=== PATIENT | male | born 1965 | race Asian ===

== ENCOUNTER 2016-05-05 10:09 | Emergency (ER) | payer MEDICARE, OTHER ==
[~2016-05-05] VITALS: Wt 130.0 kg
[~2016-05-05 10:09] MED LIST: BEN50 PO; IBUP-1542 PO; NAPR-260 PO
[2016-05-05] MEDS ORDERED: IPRATROPIUM (NEB) 0.5 MG/2.5 ML AMP HHN ONE (11:30)
[2016-05-05] MEDS ORDERED: DEXAMETHASONE 10 MG/ML 1 ML INJ IM ONE (11:30)
[2016-05-05] MEDS ORDERED: ALBUTEROL 0.083% (NEB) 2.5 MG/3 ML AMP HHN ONE (11:30)
--- NOTE | 2016-05-05 12:13 | RADRPT ---
PROCEDURE: Chest Radiograph. CLINICAL INDICATION: Cough. Wheezing. TECHNIQUE: Single frontal chest radiograph. COMPARISON: None available FINDINGS: The patient is rotated. Heart size is poorly evaluated. The cardiomediastinal silhouette is grossl y within normal limits. There is a suggested mild interstitial prominence. No confluent or lobar in filtrate is seen. No pleural effusion is identified. There is no pneumothorax. The bones are in tact. IMPRESSION: 1. Suggested mild nonspecific interstitial prominence which may be related to technical factors, ch ronic lung changes, or interstitial infiltrates/edema. Artifact is favored given the appearance of t he adjacent soft tissue. 2. No definitive evidence of acute cardiopulmonary disease. .Pierce Fish MD, MD Date Time Electronically viewed and signed by .Pierce Fish MD, on 05/05/2016 12:13 .B/
--- NOTE | 2016-05-05 13:00 | RADRPT ---
PROCEDURE: XR Elbow. CLINICAL INDICATION: Generalized elbow pain TECHNIQUE: Three views of the left elbow are available for review COMPARISON: None available FINDINGS: There is no acute osseous or articular abnormality. No evidence for fracture. The radiocapitellar and ulnohumeral articular surfaces are preserved. Enthesopathic changes are noted at the triceps ins ertion. No evidence for joint effusion or soft tissue calcifications. IMPRESSION: 1. No acute osseous abnormality. RPTAT: RR .Zeeshan Mercado MD, Date Time Electronically viewed and signed by .Zeeshan Mercado MD, MD on 05/05/2016 13:00 .d/
[2016-05-05] MEDS ORDERED: AZIT250T94 PO (13:04)
[2016-05-05] MEDS ORDERED: HYDR25SU23 PR (13:04)
[2016-05-05] MEDS ORDERED: ALBU8.5H3 INH (13:05)
[2016-05-05] MEDS ORDERED: IBUP400T22 PO (13:05)
--- NOTE | 2016-05-05 13:19 | ERD ---
ER Documentation Chief Complaint Date/Time DATE: 05/05/16 TIME: 13:14 Chief Complaint wheezing for the past month with no releif. no pain. no retractions HPI Patient is a 51-year-old male who presents the ED with multiple complaints. He states that he has had wheezing and cough for the last month, he has been using his albuterol which has helped with his symptoms. He denies chest pain, shortness of breath or difficulty breathing. He denies fever or chills. He also complains of runny nose. Denies headache, dizziness, neck pain, stiffness. Denies leg pain or swelling. Denies recent travel or recent surgeries. He also states that he wants a refill of Anusol cream. He states that he has a history of hemorrhoids and has run out of his medication. He denies any bloody stools, pain with stooling, abdominal pain, nausea, vomiting, diarrhea or constipation. Last bowel movement was today. He also complains of left elbow pain that started 1 month ago. He states that he sleeps with his elbow bent, and states that when he wakes up he has pain in his elbow. He denies radiation of pain. Denies numbness or tingling. Denies pain in the shoulder, wrist or hand. States that he is able to move his shoulder without difficulty. He also states that he would like a refill on ibuprofen. No other complaints today. ROS All systems reviewed and are negative except as per history of present illness. Medications Home Meds Active Scripts Albuterol Sulfate* (Proair HFA*) 8.5 Gm Hfa.aer.ad, 2 PUFF INH Q4, #1 INHALER Prov:RABIA PANDEY PA-C 05/05/16 Ibuprofen* (Motrin*) 400 Mg Tab, 400 MG PO Q6, #30 TAB Prov:CHRISTARIGORDO GONZALESAZ PA-C 05/05/16 Hydrocortisone Acetate (Anusol-Hc) 25 Mg Supp.rect, 1 SUPP [place] BID Y for HEMORROID PAIN/ITCHING, #12 SUPP.RECT Prov:GORDO PANDEYAZ PA-C 05/05/16 Azithromycin* (Zithromax*) 250 Mg Tablet, 250 MG PO .LashellPACK DIRECTED, #6 TAB TAKE 500 MG (2 TABS) THE FIRST DAY THEN 250 MG (1 TAB) DAYS 2-5 Prov:RABIA PANDEY PA-C 05/05/16 Diphenhydramine Hcl* (Benadryl*) 50 Mg Cap, 50 MG PO Q6H Y for ITCHING/RASH, # 30 CAP Prov:ROSEMARY GAMING Daria. WIRER HELPER 09/05/15 Ibuprofen* (Motrin*) 600 Mg Tab, 600 MG PO Q6H Y for PAIN AND OR ELEVATED TEMP, #30 TAB Prov:AMBERLYROSEMARY X. WIRER HELPER 09/05/15 Naproxen* (Naprosyn*) 500 Mg Tablet, 500 MG PO BID Y for PAIN AND/OR INFLAMMATION, #15 TAB Prov:SALOMON BENITES DO 05/17/15 Allergies Allergies: Coded Allergies: No Known Allergy (Unverified , 12/08/13) PMhx/Soc Medical and Surgical Hx: pt denies Medical Hx, pt denies Surgical Hx History of Surgery: Yes (Hemorrhoid) Hx Miscellaneous Medical Probl: Yes (hemorrhoids) Hx Alcohol Use: No Hx Substance Use: No Hx Tobacco Use: No Smoking Status: Never smoker Physical Exam Vitals Vital Signs Date Time Temp Pulse Resp B/P Pulse Ox O2 Delivery O2 Flow Rate FiO2 05/05/16 11:38 72 20 99 21 05/05/16 10:11 98.9 65 20 168/89 100 Physical Exam GENERAL: Well-developed, well-nourished male. Appears in no acute distress. HEAD: Normocephalic, atraumatic. EYES: Pupils are equally reactive bilaterally. EOMs grossly intact. No conjunctival erythema. ENT: Moist mucous membranes. No uvula deviation. No kissing tonsils. No exudates. NECK: Supple. No lymphadenopathy or thyromegaly. No meningismus. negative kernig. negative brudinski. LUNG: Clear to auscultation bilaterally. No rhonchi, rales or coarse breath sounds. Wheezing in bilateral lung louise posterior. No retractions or nasal flaring. ORTHO: No tenderness to left elbow. No snuffbox tenderness, no pain above or below the joint. Radius, ulnar, median nerve intact bilaterally. No wrist drop. Pulses intact bilaterally. No erythema, swelling, deformities or step- offs. Range of motion intact. HEART: Regular rate and rhythm. No murmurs, rubs or gallops. NEUROLOGIC: Alert and oriented. Moving all four extremities. 5/5 strength in all extremities. Normal speech. Steady gait. Negative Homans sign SKIN: Normal color. Warm and dry. No rashes or lesions. Capillary refill < 2 seconds Results 24 hrs Current Medications Medications (Trade) Dose Ordered Sig/Ham Route PRN Reason Start Time Stop Time Status Last Admin Dose Admin Albuterol (Proventil 0.083% (Neb)) 2.5 mg ONCE ONCE HHN 05/05/16 11:30 05/05/16 11:35 DC 05/05/16 11:58 Ipratropium [place] (Atrovent 0.02% (Neb)) 0.5 mg ONCE ONCE HHN 05/05/16 11:30 05/05/16 11:35 DC 05/05/16 11:57 Dexamethasone (Decadron) 10 mg ONCE ONCE IM 05/05/16 11:30 05/05/16 11:35 DC 05/05/16 11:36 Procedures/MDM ER COURSE: I kept the patient and/or family informed of laboratory and diagnostic imaging results throughout the emergency room course. [place] [id number] Radiology Main Line: [phone] DIAGNOSTIC IMAGING REPORT Patient: LAURA CARPENTER : 1965 Age: 51 Sex: M MR #: [id number] DOS: 05/05/16 1158 Ordering MD: RABIA PANDEY PA-C Location: [facility] Room/Bed: PROCEDURE: XR Elbow. CLINICAL INDICATION: Generalized elbow pain TECHNIQUE: Three views of the left elbow are available for review COMPARISON: None available FINDINGS: There is no acute osseous or articular abnormality. No evidence for fracture. The radiocapitellar and ulnohumeral articular surfaces are preserved. Enthesopathic changes are noted at the triceps insertion. No evidence for joint effusion or soft tissue calcifications. IMPRESSION: 1. No acute osseous abnormality. RPTAT: RR .Zeeshan Mercado MD, MD Date Time Electronically viewed and signed by .Zeeshan Mercado MD, MD on 05/05/2016 13:00 .d/ CC: RABIA PANDEY PA-C [place] [id number] Radiology Main Line: [phone] DIAGNOSTIC IMAGING REPORT Patient: LAURA CARPENTER : 1965 Age: 51 Sex: M MR #: [id number] DOS: 05/05/16 1125 Ordering MD: RABIA PANDEY PA-C Location: [facility] Room/Bed: PROCEDURE: Chest Radiograph. CLINICAL INDICATION: Cough. Wheezing. TECHNIQUE: Single frontal chest radiograph. COMPARISON: None available FINDINGS: The patient is rotated. Heart size is poorly evaluated. The cardiomediastinal silhouette is grossly within normal limits. There is a suggested mild interstitial prominence. No confluent or lobar infiltrate is seen. No pleural effusion is identified. There is no pneumothorax. The bones are intact. IMPRESSION: 1. Suggested mild nonspecific interstitial prominence which may be related to technical factors, chronic lung changes, or interstitial infiltrates/edema. Artifact is favored given the appearance of the adjacent soft tissue. 2. No definitive evidence of acute cardiopulmonary disease. .Pierce Fish MD, MD Date Time Electronically viewed and signed by .Pierce Fish MD, MD on 2016 12:13 .B/ CC: RABIA PANDEY PA-C procedures: RT consult. Ureteral and Atrovent given to patient. Tolerated well and seen improvement in symptoms. Decadron. MEDICAL DECISION MAKING: This is a 51-year-old male who presents with cough, wheezing 1 month and other multiple complaints. Vital signs were reviewed. Patient is afebrile. Patient is not hypoxic. Patient does not show signs of respiratory distress, temperature 98.9 with an O2 sat of 100. After RT consult, lungs were reexamined and patient was reexamined, wheezing has diminished. . Patient likely has URI of viral versus bacterial etiology. Suggested mild nonspecific interstitial prominence which may be related to technical factors, chronic lung changes, or interstitial infiltrates/edema. Artifact is favored given the appearance of the adjacent soft tissue. 2. No definitive evidence of acute cardiopulmonary disease. Low suspicion for pneumonia, PE, pneumothorax, ACS, epiglottitis, obstruction, TB, pertussis, meningitis, sepsis. Patient's elbow x-ray is unremarkable. He likely has elbow pain of unknown etiology. Low suspicion for dislocation, fracture, septic joint, compartment syndrome, osteomyelitis, cellulitis, avascular necrosis, neurological injury, vascular injury, tendon laceration. DISCHARGE: At this time, patient is stable for discharge and outpatient management with no new complaints during the ER course. Patient was sent home with Anusol, pro-air , ibuprofen, azithromycin. Patient will be discharged home with instructions to recheck for new or worsening symptoms such as fever, nausea, weakness, LOC and to follow up with primary care in the next 1-2 days. Patient was advised to return to the ER for any new or worsening symptoms. Plan was discussed and patient and/or family understands and agrees. Home instructions were given. Departure Diagnosis: Primary Impression: Wheezing Condition: Stable Patient Instructions: Asthma Referrals: NO PRIMARY,CARE PHYSICIAN (PCP) Additional Instructions: Call your primary care doctor TOMORROW for an appointment during the next 1-2 days.See the doctor sooner or return here if your condition worsens before your appointment time. RABIA PANDEY PA-C May 05, 2016 13:19
[2016-05-05 13:20] VITALS: BP 158/88; PULSE 88; RESP 20; TEMP 98.9
== END 2016-05-05 13:21 | disposition home or self-care (01) ==
LOC: FTE 10:09
DX: R06.2 Wheezing (principal)
CPT/HCPCS: 71010; 73080; 94664; 96372; 99284; J1100

== ENCOUNTER 2016-05-20 10:10 | Emergency (ER) | payer MEDICARE, OTHER ==
[~2016-05-20] VITALS: Ht 165.1 cm; Wt 89.0 kg
[~2016-05-20 10:10] MED LIST changes: +ALBU8.5H3 INH; +AZIT250T94 PO; +HYDR25SU23 PR; +IBUP400T22 PO
[2016-05-20 10:19] VITALS: Ht 165.1 cm; Wt 89.0 kg
[2016-05-20] MEDS ORDERED: ALBUTEROL 0.5% (NEB) 2.5 MG/0.5 ML AMP INH STA (10:35)
[2016-05-20] MEDS ORDERED: IPRATROPIUM (NEB) 0.5 MG/2.5 ML AMP INH STA ×2 (10:35→10:52)
--- NOTE | 2016-05-20 10:43 | ERD ---
ER Documentation Chief Complaint Date/Time DATE: 05/20/16 TIME: 10:41 Chief Complaint has asthma, felt sob x1 today,speaking in full sentences HPI Patient is a 51-year-old male who reports a history of asthma. He says ever since they changed his inhaler he has been having intermittent attacks. He would like his inhaler changed back. He says he has wheezing with cough and congestion. He has not had a fever. He does not have a sore throat or otalgia. He has a little clear runny nose. He says he stopped his primary care physician about this. There is some discussion of changing him from Flovent to Combivent. He is requesting that we make this change for him. He denies any abdominal pain, nausea, vomiting, diarrhea, dysuria, take hematuria, flank pain, back pain. He has been in his usual state of health otherwise. The remainder of the systems are negative per ROS All systems reviewed and are negative except as per history of present illness. Medications Home Meds Reported Medications Albuterol Sulfate* (Proair HFA*) 8.5 Gm Hfa.aer.ad, 2 PUFF INH Q6H Y for WHEEZING AND SOB, #1 INHALER 05/20/16 Allopurinol* (Allopurinol*) 300 Mg Tablet, 300 MG PO DAILY, TAB 05/20/16 Losartan Potassium* (Losartan Potassium*) 100 Mg Tablet, 100 MG PO DAILY, TAB 05/20/16 Amlodipine Besylate* (Amlodipine Besylate*) 10 Mg Tablet, 10 MG PO DAILY, #30 TAB 05/20/16 Discontinued Scripts Albuterol Sulfate* (Proair HFA*) 8.5 Gm Hfa.aer.ad, 2 PUFF INH Q4, #1 INHALER Prov:SHOWALLYTARIAN,TANNAZ PA-C 05/05/16 Ibuprofen* (Motrin*) 400 Mg Tab, 400 MG PO Q6, #30 TAB Prov:SHOOSHTARIAN,TANNAZ PA-C 05/05/16 Hydrocortisone Acetate (Anusol-Hc) 25 Mg Supp.rect, 1 SUPP [place] BID Y for HEMORROID PAIN/ITCHING, #12 SUPP.RECT Prov:SHOOSHTARIAN,TANNAZ PA-C 05/05/16 Azithromycin* (Zithromax*) 250 Mg Tablet, 250 MG PO .ZPACK DIRECTED, #6 TAB TAKE 500 MG (2 TABS) THE FIRST DAY THEN 250 MG (1 TAB) DAYS 2-5 Prov:RABIA PANDEY PA-C 05/05/16 Diphenhydramine Hcl* (Benadryl*) 50 Mg Cap, 50 MG PO Q6H Y for ITCHING/RASH, # 30 CAP Prov:AMBERLYROSEMARY X. NURSING CARE ATTENDANT 09/05/15 Ibuprofen* (Motrin*) 600 Mg Tab, 600 MG PO Q6H Y for PAIN AND OR ELEVATED TEMP, #30 TAB Prov:GIL GAMINGEN X. NURSING CARE ATTENDANT 09/05/15 Naproxen* (Naprosyn*) 500 Mg Tablet, 500 MG PO BID Y for PAIN AND/OR INFLAMMATION, #15 TAB Prov:SALOMON BENITES DO 05/17/15 Allergies Allergies: Coded Allergies: No Known Allergy (Unverified , 05/20/16) PMhx/Soc History of Surgery: Yes (Hemorrhoid) Hx Miscellaneous Medical Probl: Yes (hemorrhoids) Hx Alcohol Use: No Hx Substance Use: No Hx Tobacco Use: No Physical Exam Vitals Vital Signs Date Time Temp Pulse Resp B/P Pulse Ox O2 Delivery O2 Flow Rate FiO2 05/20/16 10:59 Nasal Cannula 2 05/20/16 10:55 77 20 95 21 05/20/16 10:19 98.2 85 20 153/105 99 Physical Exam Const: [] Well-developed well-nourished male sitting on the bed no acute distress. He was noted to ambulate to the bathroom and back to his bed without any difficulty. Head: Atraumatic normocephalic Eyes: Normal Conjunctiva ENT: Normal External Ears, Nose and Mouth. Neck: Full range of motion..~ No meningismus. Resp: Diffuse end expiratory wheezes, no tachypnea noted, no retractions, no nasal flaring Cardio: Regular rate and rhythm, no murmurs Abd: Soft, non tender, non distended. Normal bowel sounds Skin: No petechiae or rashes Back: No midline or flank tenderness Ext: No cyanosis, or edema Neur: Awake and alert, GCS of 15, nonfocal Psych: Normal Mood and Affect Result Diagram: 05/20/16 1002 05/20/16 1002 Results 24 hrs Laboratory Tests Test 05/20/16 10:02 Alanine Aminotransferase (ALT/SGPT) 23IU/L Albumin 4.3g/dl Albumin/Globulin Ratio 1.22 Alkaline Phosphatase 61IU/L Anion Gap 17 Aspartate Amino Transf (AST/SGOT) 27IU/L Basophils # 0.110^3/ul Basophils % 1.4% Blood Urea Nitrogen 14mg/dl Calcium Level 9.6mg/dl Carbon Dioxide Level 27mmol/L Chloride Level 104mmol/L Creatinine 0.96mg/dl Direct Bilirubin 0.00mg/dl Eosinophils # 0.710^3/ul Eosinophils % 9.2% Globulin 3.50g/dl Glucose Level 116mg/dl Hematocrit 44.5% Hemoglobin 15.4g/dl Indirect Bilirubin 1.2mg/dl Lymphocytes # 2.310^3/ul Lymphocytes % 29.2% Mean Corpuscular Hemoglobin 31.8pg Mean Corpuscular Hemoglobin Concent 34.6g/dl Mean Corpuscular Volume 91.9fl Mean Platelet Volume 10.1fl Monocytes # 0.510^3/ul Monocytes % 5.9% Neutrophils # 4.310^3/ul Neutrophils % 53.9% Nucleated Red Blood Cells # 0.010^3/ul Nucleated Red Blood Cells % 0.0/100WBC Platelet Count 18860^3/UL Potassium Level 4.2mmol/L Red Blood Count 4.8410^6/ul Red Cell Distribution Width 13.3% Sodium Level 144mmol/L Total Bilirubin 1.2mg/dl Total Protein 7.8g/dl White Blood Count 8.010^3/ul Current Medications Medications (Trade) Dose Ordered Sig/Ham Route PRN Reason Start Time Stop Time Status Last Admin Dose Admin Albuterol (Proventil 0.5% (Neb)) 5 mg ONCE STAT INH 05/20/16 10:35 05/20/16 10:37 DC 05/20/16 10:54 Ipratropium [place] (Atrovent 0.02% (Neb)) 2 mg ONCE STAT INH 05/20/16 10:35 05/20/16 10:54 DC 05/20/16 10:54 Dexamethasone (Decadron) 6 mg ONCE ONCE IV 05/20/16 11:00 05/20/16 11:01 DC 05/20/16 11:14 Ipratropium [place] (Atrovent 0.02% (Neb)) 1 mg ONCE STAT INH 05/20/16 10:52 05/20/16 10:55 DC 05/20/16 13:00 Procedures/MDM Differential includes but is not limited to asthma exacerbation, COPD exacerbation, bronchitis, pneumonia EKG: Rate/Rhythm: Normal Sinus Rhythm at 70 bpm without any evidence of acute ischemia, ectopy, or arrhythmia noted, no old EKG available for comparison QRS, ST, T-waves: No changes consistent w/ acute ischemia Impression: No evidence of ischemia or arrhythmia Chest x-ray does not reveal any acute cardiopulmonary process. 1402: Patient has received an hour-long breathing treatment. He feels much improved. His wheezing is much improved as well. It is felt he is stable for discharge home with follow-up with his primary care physician. I have given him a refill on his Combivent inhaler as requested. Departure Diagnosis: Primary Impression: Asthma with acute exacerbation Asthma severity: mild persistent Qualified Code: J45.31 - Mild persistent asthma with acute exacerbation Condition: Good Patient Instructions: Asthma Medications, Asthma, Acute (Adult) Additional Instructions: Please take your medications as prescribed. I would advise you to see her primary care physician in the next 1-2 days for recheck. Return to the emergency department if you have any increasing shortness of breath, fever, cough productive of colored phlegm, or new or worsening symptoms. MI MCKINNEY May 20, 2016 10:43
[2016-05-20] MEDS ORDERED: AMLO-147 PO (10:51)
[2016-05-20] MEDS ORDERED: ALLO300T2 PO (10:52)
[2016-05-20] MEDS ORDERED: LOSA100T7 PO (10:52)
[2016-05-20] MEDS ORDERED: ALBU8.5H3 INH (10:53)
[2016-05-20 10:55] LABS: ADD SCAN DIFF NO
[2016-05-20] MEDS ORDERED: DEXAMETHASONE 10 MG/ML 1 ML INJ IV ONE (11:00)
--- NOTE | 2016-05-20 11:00 | RADRPT ---
PROCEDURE: XR Chest 1 view. CLINICAL INDICATION: Shortness of breath TECHNIQUE: AP views of the chest were obtained. COMPARISON: May 05, 2016 FINDINGS: The heart is large. Calcified atherosclerosis is noted in the aorta. Central pulmonary vascular con gestion is seen in both lungs. Scattered atelectasis is noted in the bilateral lower lobes. No cons olidations are identified. No pneumothorax is seen. Osseous structures are intact. IMPRESSION: Cardiomegaly with calcified atherosclerosis in the aorta. Central pulmonary vascular congestion. Scattered atelectasis in the bilateral lower lobes. RPTAT: AA .Cameron Dillon MD, Date Time Electronically viewed and signed by .Cameron Dillon MD, on 05/20/2016 11:00 .P/
[2016-05-20 11:22] LABS: ALBUMIN 4.3 g/dl (3.3-4.9); BASOPHIL # 0.1 10^3/ul (0.0-0.1); BASOPHILS % 1.4 % (0.0-2.0); EOSINOPHILS # 0.7 10^3/ul (0.0-0.5); EOSINOPHILS % 9.2 % (0.0-7.0); HEMATOCRIT 44.5 % (42.0-52.0); HEMOGLOBIN 15.4 g/dl (14.0-18.0); LYMPHOCYTES # 2.3 10^3/ul (0.8-2.9); LYMPHOCYTES % 29.2 % (15.0-51.0); MEAN CORPUSCULAR HEMOGLOBIN 31.8 pg (29.0-33.0); MEAN CORPUSCULAR HGB CONC 34.6 g/dl (32.0-37.0); MEAN CORPUSCULAR VOLUME 91.9 fl (82.0-101.0); MEAN PLATELET VOLUME 10.1 fl (7.4-10.4); MONOCYTE # 0.5 10^3/ul (0.3-0.9); MONOCYTES % 5.9 % (0.0-11.0); NEUTROPHIL # 4.3 10^3/ul (1.6-7.5); NEUTROPHILS % 53.9 % (39.0-77.0); PLATELET COUNT 240 10^3/UL (140-415); RED BLOOD COUNT 4.84 10^6/ul (4.70-6.10); RED CELL DISTRIBUTION WIDTH 13.3 % (11.5-14.5)
[2016-05-20 11:23] LABS: POTASSIUM 4.2 mmol/L (3.5-5.1)
[2016-05-20 11:25] LABS: ALBUMIN/GLOBULIN RATIO 1.22; BILIRUBIN,INDIRECT 1.2 mg/dl (0-1.1); BILIRUBIN,TOTAL 1.2 mg/dl (0.2-1.3); CREATININE 0.96 mg/dl (0.61-1.24); TOTAL PROTEIN 7.8 g/dl (6.1-8.1)
[2016-05-20 11:26] LABS: CALCIUM 9.6 mg/dl (8.4-10.2)
[2016-05-20] MEDS ORDERED: IPRA4AER INHALATION (14:04)
[2016-05-20] MEDS ORDERED: PRED20TA PO (14:05)
[2016-05-20] MEDS ORDERED: BENZ100C70 PO (14:05)
[2016-05-20] MEDS ORDERED: HYDR473S12 PO (14:06)
[2016-05-20 14:12] VITALS: BP 134/78; PULSE 90; RESP 20
== END 2016-05-20 14:13 | disposition home or self-care (01) ==
LOC: E/R 10:10
DX: J45.31 Mild persistent asthma with (acute) exacerbation (principal); R40.2142 Coma scale, eyes open, spontaneous, at arrival to emergency department; R40.2362 Coma scale, best motor response, obeys commands, at arrival to emergency department; R40.2252 Coma scale, best verbal response, oriented, at arrival to emergency department
CPT/HCPCS: 36415; 71010; 80053; 85025; 93005; 94644; 94645; 96374; 99285; J1100

== ENCOUNTER 2017-04-13 08:41 | Emergency (ER) | END 2017-04-13 12:58 | disposition home or self-care (01) ==